=== PATIENT | male | born 1950 | race Caucasian/White ===

== ENCOUNTER → 2018-02-08 | Outpatient (CLI) | payer MEDICARE ==
[2015-12-26 09:40] VITALS: BP 175/96
[~2018-02-08] MED LIST: HYDROCHLOROTHIA1 T15 PO
[2018-02-08 11:50] LABS: EOS # 0.1 (0.04-0.40); EOS % 1.9 % (0.0-4.0); HEMATOCRIT 44.5 % (42.0-52.0); HEMOGLOBIN 14.8 g/dL (13.5-18.0); LYMPH# 1.5 (1.50-4.00); MEAN CELL VOLUME 96 fl (78-100); MEAN CORPUSCULAR HEMOGLOBIN 32 pg (27-31); MEAN CORPUSCULAR HGB CONC 33 g/dL (33-37); MEAN PLATELET VOLUME 10.6 fl (7.4-10.4); MONO # 0.7 (0.20-0.80); NEU # 4.4 (1.40-6.50); PLATELET COUNT 196 K/mm3 (130-400); RED BLOOD COUNT 4.62 M/mm3 (4.20-5.60); RED CELL DISTRIBUTION WIDTH 13.9 % (11.5-14.5); WHITE BLOOD COUNT 6.8 K/mm3 (4.8-10.8)
[2018-02-08 12:01] LABS: ALBUMIN 4.7 g/dL (3.5-5.0); CALCIUM 9.9 mg/dL (8.4-10.2); POTASSIUM 4.6 mmol/L (3.6-5.0); TOTAL BILIRUBIN 0.6 mg/dL (0.2-1.3); TOTAL PROTEIN 7.7 g/dL (6.3-8.2)
[2018-02-08 12:58] LABS: ERYTHROCYTE SEDIMENTATION RATE 4 mm/hr (0-20)
[2018-02-09 02:01] LABS: TESTOSTERONE 713 ng/dL (221-716)
== END ==
LOC: LAB 11:17
PROVIDERS: Internal Medicine
DX: Z12.5 Encounter for screening for malignant neoplasm of prostate (principal); Z12.11 Encounter for screening for malignant neoplasm of colon; I10 Essential (primary) hypertension; N52.9 Male erectile dysfunction, unspecified; E78.2 Mixed hyperlipidemia

== ENCOUNTER 2018-09-20 10:33 | Emergency (ER) | payer MEDICARE ==
[~2018-09-20] VITALS: Wt 59.1 kg
[2018-09-20] MEDS ORDERED: ASPIRIN E.C. 8181 MG (11:08)
[2018-09-20] MEDS ORDERED: NATURAL VITAM1000 MG PO (11:08)
[2018-09-20] MEDS ORDERED: ISMO 20MG20 MG (11:08)
[2018-09-20] MEDS ORDERED: MULTIVITAMIN1 SGL PO (11:10)
[2018-09-20] MEDS ORDERED: OMEGA 3 1,0001 EACH PO (11:10)
[2018-09-20] MEDS ORDERED: VITAMIN E400 UNI1 PO (11:10)
[2018-09-20] MEDS ORDERED: POTASSIUM GLUC500 M1 PO (11:10)
[2018-09-20 11:13] LABS: EOS # 0.1 (0.04-0.40); EOS % 1.4 % (0.0-4.0); HEMATOCRIT 43.8 % (42.0-52.0); HEMOGLOBIN 14.5 g/dL (13.5-18.0); LYMPH# 1.1 (1.50-4.00); MEAN CELL VOLUME 96 fl (78-100); MEAN CORPUSCULAR HEMOGLOBIN 32 pg (27-31); MEAN CORPUSCULAR HGB CONC 33 g/dL (33-37); MEAN PLATELET VOLUME 10.6 fl (7.4-10.4); MONO # 0.8 (0.20-0.80); PLATELET COUNT 219 K/mm3 (130-400); RED BLOOD COUNT 4.58 M/mm3 (4.20-5.60); WHITE BLOOD COUNT 7.1 K/mm3 (4.8-10.8)
[2018-09-20 11:16] LABS: ALBUMIN 4.2 g/dL (3.4-4.8)
[2018-09-20 11:17] LABS: POTASSIUM 4.8 mmol/L (3.5-5.1); SODIUM 137 mmol/L (136-145)
[2018-09-20 11:19] LABS: GLUCOSE 109 mg/dL (75-110); TOTAL PROTEIN 6.9 g/dL (6.2-8.1)
[2018-09-20 11:20] LABS: CARBON DIOXIDE 25 mmol/L (23-31)
[2018-09-20 11:21] LABS: TOTAL BILIRUBIN 0.5 mg/dL (0.2-1.2)
[2018-09-20 11:22] LABS: PARTIAL THROMBOPLASTIN TIME 23.2 SECONDS (21.0-32.0)
[2018-09-20 11:24] LABS: URINE WBC 0 /hpf (0-3)
[2018-09-20 11:24] LABS: AST-SGOT 25 U/L (5-34)
[2018-09-20 11:25] LABS: ALT/SGPT 28 U/L (0-55)
[2018-09-20 11:34] LABS: TROPONIN-I < 0.03 ng/mL (<0.030)
[2018-09-20 11:36] LABS: URINE APPEARANCE CLEAR; URINE BILIRUBIN NEGATIVE (NEGATIVE); URINE BLOOD NEGATIVE (NEGATIVE); URINE COLOR YELLOW; URINE GLUCOSE NEGATIVE (NEGATIVE); URINE KETONE NEGATIVE (NEGATIVE); URINE LEUKOCYTE ESTERASE NEGATIVE (NEGATIVE); URINE NITRATE NEGATIVE (NEGATIVE); URINE PROTEIN(semi-quant) 1+ mg/dL (NEGATIVE); URINE UROBILINOGEN NORMAL (NORMAL)
[2018-09-20 13:38] VITALS: BP 170/88
== END 2018-09-20 12:35 | disposition short-term general hospital (02) ==
LOC: ED 10:33
PROVIDERS: Physician Assistant
DX: I63.9 Cerebral infarction, unspecified (principal); I10 Essential (primary) hypertension; F17.210 Nicotine dependence, cigarettes, uncomplicated; Z79.82 Long term (current) use of aspirin; Z86.69 Personal history of other diseases of the nervous system and sense organs
CPT/HCPCS: J7030

== ENCOUNTER → 2018-10-27 | Outpatient (CLI) | payer MEDICARE ==
[2018-10-13 06:16] VITALS: BP 132/88
[~2018-10-27] MED LIST changes: +ASPIRIN E.C. 8181 MG PO; +CARVEDILOL6.25 MG PO; +CHOLEST OFF450 MG; +CLOPIDOGREL PO; +COREG12.5 M1 PO; +IPRATROPIUM BROM3 M1 IH; +ISOSORBIDE MONO60 M2 PO; +LIPITOR 80MG80 MG PO; +LORAZEPAM0.5 M1 PO; +LOSARTAN POTAS100 MG PO; +MAGNESIUM OXID400 MG PO; +MUCUS RELIEF400 M1 PO; +MULTI-VITAMINS1 TA1 PO; +NATURAL VITAM1000 MG PO; +NORVASC 5MG5 MG/TAB PO; +OMEGA 3 1,0001 EACH PO; +POTASSIUM GLUC500 M1 PO; +PROTONIX20 M1 PO; +VITAMIN E400 UNI1 PO; +ZYRTEC ALLERGY10 MG PO
[2018-10-27 11:11] LABS: EOS # 0.3 (0.04-0.40); EOS % 4.4 % (0.0-4.0); HEMATOCRIT 42.6 % (42.0-52.0); HEMOGLOBIN 14.1 g/dL (13.5-18.0); LYMPH# 1.1 (1.50-4.00); MEAN CELL VOLUME 96 fl (78-100); MEAN CORPUSCULAR HEMOGLOBIN 32 pg (27-31); MEAN CORPUSCULAR HGB CONC 33 g/dL (33-37); MEAN PLATELET VOLUME 10.1 fl (7.4-10.4); MONO # 0.8 (0.20-0.80); NEU # 4.5 (1.40-6.50); PLATELET COUNT 235 K/mm3 (130-400); RED BLOOD COUNT 4.46 M/mm3 (4.20-5.60); RED CELL DISTRIBUTION WIDTH 13.1 % (11.5-14.5); WHITE BLOOD COUNT 6.8 K/mm3 (4.8-10.8)
[2018-10-27 11:17] LABS: ALBUMIN 4.3 g/dL (3.4-4.8); POTASSIUM 4.8 mmol/L (3.5-5.1)
[2018-10-27 11:19] LABS: TOTAL PROTEIN 7.9 g/dL (6.2-8.1)
[2018-10-27 11:21] LABS: TOTAL BILIRUBIN 0.6 mg/dL (0.2-1.2)
[2018-10-27 11:39] LABS: CALCIUM 10.2 mg/dL (8.3-10.5)
== END ==
LOC: LAB 10:57
PROVIDERS: Internal Medicine
DX: I10 Essential (primary) hypertension (principal); E78.5 Hyperlipidemia, unspecified

== ENCOUNTER → 2018-11-21 | Outpatient (CLI) | payer MEDICARE ==
[2018-10-13 06:16] VITALS: BP 132/88
[2018-11-21 10:52] LABS: ALBUMIN 4.4 g/dL (3.4-4.8)
[2018-11-21 10:55] LABS: TOTAL PROTEIN 7.4 g/dL (6.2-8.1)
[2018-11-21 10:57] LABS: TOTAL BILIRUBIN 0.5 mg/dL (0.2-1.2)
[2018-11-21 11:00] LABS: DIRECT BILIRUBIN 0.2 mg/dL (0.0-0.5)
== END ==
LOC: LAB 10:39
PROVIDERS: Internal Medicine
DX: E78.5 Hyperlipidemia, unspecified (principal)

== ENCOUNTER → 2019-01-09 | Outpatient (CLI) | payer MEDICARE ==
[2018-10-13 06:16] VITALS: BP 132/88
[2019-01-09 14:15] LABS: ALBUMIN 4.5 g/dL (3.4-4.8)
[2019-01-09 14:18] LABS: TOTAL PROTEIN 7.9 g/dL (6.2-8.1)
[2019-01-09 14:20] LABS: TOTAL BILIRUBIN 0.6 mg/dL (0.2-1.2)
[2019-01-09 14:23] LABS: DIRECT BILIRUBIN 0.2 mg/dL (0.0-0.5)
== END ==
LOC: LAB 13:58
PROVIDERS: Internal Medicine
DX: E78.5 Hyperlipidemia, unspecified (principal)

== ENCOUNTER 2019-01-26 13:30 | Outpatient (RCR) | payer MEDICARE ==
[2018-10-13 06:16] VITALS: BP 132/88
== END 2019-01-26 14:00 ==
LOC: PT
DX: I63.411 Cerebral infarction due to embolism of right middle cerebral artery (principal)

== ENCOUNTER → 2019-03-19 | Outpatient (CLI) | payer MEDICARE ==
[2018-10-13 06:16] VITALS: BP 132/88
[2019-03-19 11:28] LABS: EOS # 0.2 (0.04-0.40); HEMATOCRIT 40.3 % (42.0-52.0); HEMOGLOBIN 13.4 g/dL (13.5-18.0); LYMPH# 1.2 (1.50-4.00); MEAN CELL VOLUME 96 fl (78-100); MEAN CORPUSCULAR HEMOGLOBIN 32 pg (27-31); MEAN CORPUSCULAR HGB CONC 33 g/dL (33-37); MEAN PLATELET VOLUME 10.4 fl (7.4-10.4); MONO # 0.7 (0.20-0.80); NEU # 3.9 (1.40-6.50); PLATELET COUNT 210 K/mm3 (130-400); RED BLOOD COUNT 4.18 M/mm3 (4.20-5.60); RED CELL DISTRIBUTION WIDTH 13.3 % (11.5-14.5); WHITE BLOOD COUNT 6.1 K/mm3 (4.8-10.8)
[2019-03-19 11:37] LABS: MAGNESIUM 1.87 mg/dL (1.60-2.60)
[2019-03-19 12:33] LABS: ERYTHROCYTE SEDIMENTATION RATE 10 mm/hr (0-20)
[2019-03-19 17:18] LABS: ALBUMIN 4.6 g/dL (3.4-4.8)
[2019-03-19 17:21] LABS: TOTAL PROTEIN 7.8 g/dL (6.2-8.1)
[2019-03-19 17:23] LABS: TOTAL BILIRUBIN 0.4 mg/dL (0.2-1.2)
[2019-03-19 17:27] LABS: DIRECT BILIRUBIN 0.2 mg/dL (0.0-0.5)
== END ==
LOC: LAB 11:09
PROVIDERS: Internal Medicine
DX: Z12.5 Encounter for screening for malignant neoplasm of prostate (principal); Z12.11 Encounter for screening for malignant neoplasm of colon; I10 Essential (primary) hypertension; E78.5 Hyperlipidemia, unspecified; N52.03 Combined arterial insufficiency and corporo-venous occlusive erectile dysfunction

== ENCOUNTER → 2019-09-03 | Outpatient (CLI) | payer MEDICARE ==
[2018-10-13 06:16] VITALS: BP 132/88
[2019-09-03 09:54] LABS: EOS # 0.2 (0.04-0.40); EOS % 2.8 % (0.0-4.0); HEMATOCRIT 37.1 % (42.0-52.0); HEMOGLOBIN 12.2 g/dL (13.5-18.0); LYMPH# 1.2 (1.50-4.00); MEAN CELL VOLUME 96 fl (78-100); MEAN CORPUSCULAR HEMOGLOBIN 32 pg (27-31); MEAN CORPUSCULAR HGB CONC 33 g/dL (33-37); MEAN PLATELET VOLUME 10.2 fl (7.4-10.4); MONO # 0.6 (0.20-0.80); NEU # 3.4 (1.40-6.50); PLATELET COUNT 200 K/mm3 (130-400); RED BLOOD COUNT 3.87 M/mm3 (4.20-5.60); RED CELL DISTRIBUTION WIDTH 12.9 % (11.5-14.5); WHITE BLOOD COUNT 5.3 K/mm3 (4.8-10.8)
[2019-09-03 10:11] LABS: ALBUMIN 4.5 g/dL (3.4-4.8); POTASSIUM 4.2 mmol/L (3.5-5.1)
[2019-09-03 10:12] LABS: CALCIUM 9.4 mg/dL (8.3-10.5)
[2019-09-03 10:13] LABS: TOTAL PROTEIN 7.4 g/dL (6.2-8.1)
[2019-09-03 10:15] LABS: TOTAL BILIRUBIN 0.3 mg/dL (0.2-1.2)
[2019-09-03 10:59] LABS: ERYTHROCYTE SEDIMENTATION RATE 8 mm/hr (0-20)
== END ==
LOC: LAB 09:29
PROVIDERS: Internal Medicine
DX: I10 Essential (primary) hypertension (principal); E78.5 Hyperlipidemia, unspecified; R73.02 Impaired glucose tolerance (oral); I67.89 Other cerebrovascular disease

== ENCOUNTER → 2019-09-21 | Outpatient (CLI) | payer MEDICARE ==
[2018-10-13 06:16] VITALS: BP 132/88
[2019-09-21 10:26] LABS: HEMATOCRIT 39.2 % (42.0-52.0); HEMOGLOBIN 12.7 g/dL (13.5-18.0); MEAN PLATELET VOLUME 10.2 fl (7.4-10.4); RED BLOOD COUNT 4.12 M/mm3 (4.20-5.60); WHITE BLOOD COUNT 4.7 K/mm3 (4.8-10.8)
== END ==
LOC: LAB 09:53
PROVIDERS: Internal Medicine
DX: D64.9 Anemia, unspecified (principal)

== ENCOUNTER → 2019-10-11 | Outpatient (CLI) | payer MEDICARE ==
[2018-10-13 06:16] VITALS: BP 132/88
[2019-10-11 10:33] LABS: POTASSIUM 4.4 mmol/L (3.5-5.1)
[2019-10-11 10:34] LABS: CALCIUM 9.6 mg/dL (8.3-10.5)
== END ==
LOC: LAB 09:59
PROVIDERS: Internal Medicine
DX: I10 Essential (primary) hypertension (principal)

== ENCOUNTER → 2019-10-17 | Outpatient (CLI) | payer MEDICARE ==
[2018-10-13 06:16] VITALS: BP 132/88
== END ==
LOC: VAS 16:28 → RAD 16:45
DX: I25.5 Ischemic cardiomyopathy (principal)

== ENCOUNTER → 2020-02-29 | Outpatient (CLI) | payer MEDICARE ==
[2018-10-13 06:16] VITALS: BP 132/88
== END ==
LOC: VAS 09:12 → RAD 09:30
DX: I25.10 Atherosclerotic heart disease of native coronary artery without angina pectoris (principal)

== ENCOUNTER → 2020-05-26 | Outpatient (CLI) | payer MEDICARE ==
[2018-10-13 06:16] VITALS: BP 132/88
[2020-05-26 13:42] LABS: EOS # 0.2 (0.04-0.40); EOS % 3.4 % (0.0-4.0); HEMATOCRIT 40.5 % (42.0-52.0); HEMOGLOBIN 13.3 g/dL (13.5-18.0); LYMPH# 1.3 (1.50-4.00); MEAN CELL VOLUME 96 fl (78-100); MEAN CORPUSCULAR HEMOGLOBIN 31 pg (27-31); MEAN CORPUSCULAR HGB CONC 33 g/dL (33-37); MEAN PLATELET VOLUME 10.1 fl (7.4-10.4); MONO # 0.6 (0.20-0.80); NEU # 3.2 (1.40-6.50); PLATELET COUNT 203 K/mm3 (130-400); RED BLOOD COUNT 4.23 M/mm3 (4.20-5.60); WHITE BLOOD COUNT 5.3 K/mm3 (4.8-10.8)
[2020-05-26 13:52] LABS: ALBUMIN 4.6 g/dL (3.4-4.8); POTASSIUM 4.5 mmol/L (3.5-5.1)
[2020-05-26 13:53] LABS: CALCIUM 9.9 mg/dL (8.3-10.5)
[2020-05-26 13:54] LABS: TOTAL PROTEIN 7.9 g/dL (6.2-8.1)
[2020-05-26 13:56] LABS: TOTAL BILIRUBIN 0.6 mg/dL (0.2-1.2)
[2020-05-26 14:47] LABS: ERYTHROCYTE SEDIMENTATION RATE 12 mm/hr (0-20)
== END ==
LOC: LAB 13:18
PROVIDERS: Internal Medicine
DX: Z12.5 Encounter for screening for malignant neoplasm of prostate (principal); I10 Essential (primary) hypertension; K90.9 Intestinal malabsorption, unspecified; E78.2 Mixed hyperlipidemia

== ENCOUNTER → 2020-08-19 | Outpatient (CLI) | payer MEDICARE ==
[2018-10-13 06:16] VITALS: BP 132/88
[2020-08-19 12:07] LABS: BASO # 0.03 (0.02-0.10); EOS # 0.19 (0.04-0.40); EOS % 3.7 % (0.0-4.0); HEMATOCRIT 38.2 % (42.0-52.0); HEMOGLOBIN 12.9 g/dL (13.5-18.0); MEAN CELL VOLUME 93 fl (78-100); MEAN CORPUSCULAR HEMOGLOBIN 32 pg (27-31); MEAN CORPUSCULAR HGB CONC 34 g/dL (33-37); MEAN PLATELET VOLUME 9.9 fl (7.4-10.4); MONO # 0.59 (0.20-0.80); NEU # 3.09 (1.40-6.50); PLATELET COUNT 191 K/mm3 (130-400); RED CELL DISTRIBUTION WIDTH 12.6 % (11.5-14.5); WHITE BLOOD COUNT 5.1 K/mm3 (4.8-10.8)
[2020-08-19 12:19] LABS: ALBUMIN 4.2 g/dL (3.4-4.8); POTASSIUM 4.5 mmol/L (3.5-5.1)
[2020-08-19 12:20] LABS: CALCIUM 9.3 mg/dL (8.3-10.5)
[2020-08-19 12:22] LABS: TOTAL PROTEIN 7.3 g/dL (6.2-8.1)
[2020-08-19 12:24] LABS: TOTAL BILIRUBIN 0.5 mg/dL (0.2-1.2)
== END ==
LOC: LAB 11:59
PROVIDERS: Internal Medicine
DX: E78.2 Mixed hyperlipidemia (principal); I10 Essential (primary) hypertension

== ENCOUNTER → 2020-11-24 | Outpatient (CLI) | payer MEDICARE ==
[2020-11-24 10:15] LABS: BASO # 0.02 (0.02-0.10); EOS # 0.23 (0.04-0.40); EOS % 3.9 % (0.0-4.0); HEMATOCRIT 40.6 % (42.0-52.0); HEMOGLOBIN 13.3 g/dL (13.5-18.0); LYMPH# 1.13 (1.50-4.00); MEAN CELL VOLUME 95 fl (78-100); MEAN CORPUSCULAR HEMOGLOBIN 31 pg (27-31); MEAN CORPUSCULAR HGB CONC 33 g/dL (33-37); MONO # 0.65 (0.20-0.80); NEU # 3.77 (1.40-6.50); PLATELET COUNT 183 K/mm3 (130-400); RED BLOOD COUNT 4.26 M/mm3 (4.20-5.60); WHITE BLOOD COUNT 5.8 K/mm3 (4.8-10.8)
[2020-11-24 10:18] LABS: ALBUMIN 4.1 g/dL (3.4-4.8); POTASSIUM 4.4 mmol/L (3.5-5.1)
[2020-11-24 10:20] LABS: CALCIUM 9.8 mg/dL (8.3-10.5)
[2020-11-24 10:23] LABS: TOTAL BILIRUBIN 0.6 mg/dL (0.2-1.2)
== END ==
LOC: LAB 09:45
PROVIDERS: Internal Medicine
DX: K90.9 Intestinal malabsorption, unspecified (principal); I10 Essential (primary) hypertension

== ENCOUNTER → 2021-05-19 | Outpatient (CLI) | payer MEDICARE ==
[2021-05-19 11:32] LABS: ALBUMIN 4.4 g/dL (3.4-4.8); POTASSIUM 4.9 mmol/L (3.5-5.1)
[2021-05-19 11:35] LABS: TOTAL PROTEIN 7.4 g/dL (6.2-8.1)
[2021-05-19 11:37] LABS: TOTAL BILIRUBIN 0.4 mg/dL (0.2-1.2)
[2021-05-19 11:41] LABS: MAGNESIUM 1.91 mg/dL (1.60-2.60)
[2021-05-19 11:50] LABS: BASO # 0.04 K/mm3 (0.02-0.10); EOS # 0.22 K/mm3 (0.04-0.40); EOS % 4.7 % (0.0-4.0); HEMATOCRIT 42.1 % (42.0-52.0); HEMOGLOBIN 13.8 g/dL (13.5-18.0); MEAN CELL VOLUME 95 fl (78-100); MEAN CORPUSCULAR HEMOGLOBIN 31 pg (27-31); MEAN CORPUSCULAR HGB CONC 33 g/dL (33-37); MEAN PLATELET VOLUME 10.5 fl (7.4-10.4); MONO # 0.54 K/mm3 (0.20-0.80); NEU # 2.88 K/mm3 (1.40-6.50); PLATELET COUNT 223 K/mm3 (130-400); RED BLOOD COUNT 4.44 M/mm3 (4.20-5.60); RED CELL DISTRIBUTION WIDTH 13.3 % (11.5-14.5); WHITE BLOOD COUNT 4.7 K/mm3 (4.8-10.8)
[2021-05-19 13:20] LABS: ERYTHROCYTE SEDIMENTATION RATE 10 mm/hr (0-20)
== END ==
LOC: LAB 10:38
PROVIDERS: Internal Medicine
DX: Z12.5 Encounter for screening for malignant neoplasm of prostate (principal); I63.9 Cerebral infarction, unspecified; I10 Essential (primary) hypertension; K90.9 Intestinal malabsorption, unspecified; E78.2 Mixed hyperlipidemia

== ENCOUNTER → 2021-08-21 | Outpatient (CLI) | payer MEDICARE ==
[2021-08-21 11:50] LABS: BASO # 0.03 K/mm3 (0.02-0.10); EOS # 0.21 K/mm3 (0.04-0.40); EOS % 3.7 % (0.0-4.0); HEMATOCRIT 41.6 % (42.0-52.0); HEMOGLOBIN 13.7 g/dL (13.5-18.0); LYMPH# 1.18 K/mm3 (1.50-4.00); MEAN CELL VOLUME 94 fl (78-100); MEAN CORPUSCULAR HEMOGLOBIN 31 pg (27-31); MEAN CORPUSCULAR HGB CONC 33 g/dL (33-37); MEAN PLATELET VOLUME 10.1 fl (7.4-10.4); MONO # 0.61 K/mm3 (0.20-0.80); NEU # 3.62 K/mm3 (1.40-6.50); PLATELET COUNT 205 K/mm3 (130-400); RED BLOOD COUNT 4.41 M/mm3 (4.20-5.60); WHITE BLOOD COUNT 5.7 K/mm3 (4.8-10.8)
[2021-08-21 11:58] LABS: ALBUMIN 4.3 g/dL (3.4-4.8); POTASSIUM 4.7 mmol/L (3.5-5.1)
[2021-08-21 11:59] LABS: CALCIUM 9.9 mg/dL (8.3-10.5)
[2021-08-21 12:01] LABS: TOTAL PROTEIN 7.3 g/dL (6.2-8.1)
[2021-08-21 12:02] LABS: TOTAL BILIRUBIN 0.3 mg/dL (0.2-1.2)
== END ==
LOC: LAB 11:26
PROVIDERS: Internal Medicine
DX: K90.9 Intestinal malabsorption, unspecified (principal); E78.2 Mixed hyperlipidemia; I10 Essential (primary) hypertension

== ENCOUNTER → 2021-11-11 | Outpatient (CLI) | payer MEDICARE | LOC: VAS 10:19 → RAD 10:30 | DX: I50.21 Acute systolic (congestive) heart failure (principal) ==

== ENCOUNTER → 2023-03-11 | Outpatient (CLI) | payer MEDICARE ==
[2023-03-11 11:31] LABS: BASO # 0.02 K/mm3 (0.02-0.10); EOS # 0.22 K/mm3 (0.04-0.40); EOS % 3.9 % (0.0-4.0); HEMATOCRIT 40.8 % (42.0-52.0); HEMOGLOBIN 13.3 g/dL (13.5-18.0); MEAN CELL VOLUME 96 fl (78-100); MEAN CORPUSCULAR HEMOGLOBIN 31 pg (27-31); MEAN CORPUSCULAR HGB CONC 33 g/dL (33-37); MEAN PLATELET VOLUME 10.5 fl (7.4-10.4); MONO # 0.67 K/mm3 (0.20-0.80); NEU # 3.71 K/mm3 (1.40-6.50); PLATELET COUNT 206 K/mm3 (130-400); RED BLOOD COUNT 4.26 M/mm3 (4.20-5.60); RED CELL DISTRIBUTION WIDTH 13.4 % (11.5-14.5); WHITE BLOOD COUNT 5.7 K/mm3 (4.8-10.8)
[2023-03-11 11:40] LABS: ALBUMIN 4.7 g/dL (3.4-4.8)
[2023-03-11 11:41] LABS: CALCIUM 9.9 mg/dL (8.3-10.5)
[2023-03-11 11:42] LABS: TOTAL PROTEIN 8.2 g/dL (6.2-8.1)
[2023-03-11 11:44] LABS: TOTAL BILIRUBIN 0.5 mg/dL (0.2-1.2)
[2023-03-11 11:48] LABS: MAGNESIUM 1.92 mg/dL (1.60-2.60)
== END ==
LOC: LAB 11:01
PROVIDERS: Internal Medicine
DX: Z12.11 Encounter for screening for malignant neoplasm of colon (principal); Z11.59 Encounter for screening for other viral diseases; I10 Essential (primary) hypertension; K90.9 Intestinal malabsorption, unspecified; E78.2 Mixed hyperlipidemia